=== PATIENT | female | born 1995 | race Hispanic/Latino ===

== ENCOUNTER 2017-02-08 21:28 | Emergency (ER) | payer OTHER ==
[~2017-02-08] VITALS: Ht 160 cm; Wt 56.8 kg
[2017-02-08 21:31] VITALS: BP 134/86; PULSE 102; RESP 20; O2SAT 100
[2017-02-08 23:37] LABS: APPEARANCE,URINE HAZY (CLEAR,HAZY); COLOR,URINE STRAW (YELLOW); OCCULT BLOOD,URINE NEGATIVE (NEGATIVE); PH,URINE 6.5 (5.0-8.0); UROBILINOGEN,URINE NORMAL (NORMAL)
--- NOTE | 2017-02-08 23:39 | ED.REPORT ---
HPI- Female Date of Service Feb 08, 2017 ED Provider: Dr. Bae A 22 year old female with a history of anemia presents to the ED complaining of vaginal discharge described as white and thick onset 1 month ago. Sometimes discharge is yellow. Associated symptoms include vaginal irritation ,itching, an unpleasant smell, and abdominal cramping. She was told by her doctor that it could be bacterial vaginosis. Nursing Notes Stated Complaint: VAGINAL DISCHARGE, ABDOMINAL CRAMPS Chief Complaint: Female Abdominal Pain Nursing Notes Reviewed: Yes Allergies: Coded Allergies: Sulfa (Sulfonamide Antibiotics) (Verified Allergy, Unknown, 11/06/14) General Time Seen by MD: 23:38 Chief Complaint Vaginal discharge... (White) Hx Obtained From: Patient Arrived By: Walk-in Sudden in Onset?: No Onset Occurred: More than a week ago... (1 month) Symptom Duration: Since onset Severity: Current: Moderate Severity: Maximum: Moderate Recent Healthcare: Recent doctor visit Similar Sx Previous: No Past Medical History Past Medical History On iron for anemia denies any other major medical problems Smoking History Never Smoker Social History Drug Use: THC Review of Systems Review of Systems Note: Vaginal irritation. Vaginal itching. Unpleasant smell. Constitutional: Denies: Chills, Fever GI: Reports: Abdominal pain (cramping) Female: Reports: Vaginal discharge Complete sys rev & neg: except as marked. Physical Exam Physical Exam Notes: Initial Vital Signs Vital Signs (First) Date Time Temp Pulse Resp B/P Pulse Ox O2 Delivery O2 Flow Rate FiO2 02/08/17 21:31 36.7 102 20 134/86 100 Room Air Initial VS: Reviewed Vaginal Bleeding / Discharge: Positive: Discharge white (Frothy with cervical tenderness) Pelvic Exam: Positive: Cervical motion tend... (pelvic exam performed with nurse chief [employer]. The nurse was present. There is cervical motion tenderness as well as thick white frothy discharge. Adnexa are within normal.) General/Constitutional: Awake, Alert Respiratory / Chest: Atraumatic, Breath sounds NL, Breath sounds = bilat, No respiratory distress, No rales, No rhonchi, No wheezing Cardiovascular: Heart rate NL, Regular rhythm, Heart sounds NL, No gallop, No murmurs, No rubs Abdomen: No guarding, No rebound Back: Atraumatic, Inspection NL Skin: Atraumatic, Color NL, Warm, Dry Head / Eyes: Atraumatic, Normocephalic, PERRL, EOMI Neck: Atraumatic, Supple, No swelling, Non-tender Upper Extremity / MS: No swelling, No edema Lower Extremity / Pelvis / MS: No swelling, No edema, Pelvis stable (Pelvis normal) Interpretation & Diagnostics Lab Results Interpretation Result Diagram: 02/08/17 2342 02/08/17 2342 Test 02/08/17 23:25 02/08/17 23:42 Urine Color Straw (YELLOW) Urine Appearance Hazy (CLEAR,HAZY) Urine pH 6.5 (5.0-8.0) Urine Specific [place] 1.013 (1.003-1.035) Urine Protein Negativemg/dL (NEG,TRACE) Urine Glucose (UA) Negativemg/dL (NEGATIVE) Urine Ketones Negativemg/dL (NEGATIVE) Urine Occult Blood Negative (NEGATIVE) Urine Nitrite Negative (NEGATIVE) Urine Bilirubin Negative (NEGATIVE) Urine Urobilinogen Normalmg/dL (NORMAL) Urine Leukocyte Esterase Moderate (NEGATIVE) Urine RBC 0-2/hpf (0-2) Urine WBC 6-10/hpf (0-5) Urine Epithelial Cells Moderate/hpf (NONE-MOD) Urine Crystals None seen (NONE SEEN) Urine Bacteria Few/hpf (NONE-FEW) Urine Hyaline Casts None/lpf (NONE) Urine Granular Casts None seen (NONE SEEN) Urine Waxy Casts None seen (NONE SEEN) Urine Red Blood Cell Casts None seen (NONE SEEN) Urine White Blood Cell Casts None seen (NONE SEEN) Urine Mucus None seen (None Seen) Urine Trichomonas None seen (NONE SEEN) Urine Yeast None (NONE SEEN) Urine Culture Reflexed Indicated White Blood Count 7.1th/mm3 (3.8-10.1) Red Blood Count 4.30mil/mm3 (3.90-5.20) Hemoglobin 6.5g/dL (12.0-15.6) Hematocrit 24.9% (35.0-46.0) Mean Corpuscular Volume 57.9fL (81-100) Mean Corpuscular Hemoglobin 15.1pg (27.0-35.0) Mean Corpuscular Hemoglobin Concent 26.1% (32.0-37.0) Red Cell Distribution Width 21.5% (12.3-15.4) Platelet Count 383bil/L (150-400) Neutrophils (%) (Auto) 57.9% (40-74) Lymphocytes (%) (Auto) 32.4% (14-46) Monocytes (%) (Auto) 6.7% (4-12) Eosinophils (%) (Auto) 1.4% (0-5) Basophils (%) (Auto) 1.3% (0-3) Band Neutrophils % 0% (1-5) Hematology Comments Sodium Level 140mEq/L (134-144) Potassium Level 4.4mEq/L (3.5-5.2) Chloride Level 105mEq/L (97-108) Carbon Dioxide Level 20mmol/L (18-29) Blood Urea Nitrogen 8mg/dL (6-20) Creatinine 0.41mg/dL (0.57-1.00) Estimat Glomerular Filtration Rate 283mL/min (>59) Glucose Level 140mg/dL (60-99) Calcium Level 8.8mg/dL (8.5-10.1) Magnesium Level 2.1mg/dL (1.6-2.6) Total Bilirubin 0.2mg/dL (0.0-1.2) Aspartate Amino Transf (AST/SGOT) 18U/L (0-50) Alanine Aminotransferase (ALT/SGPT) 10U/L (0-32) Alkaline Phosphatase 82U/L (25-150) Total Protein 7.5g/dL (6.4-8.4) Albumin 4.3g/dL (3.4-5.0) Lipase 19U/L (13-60) Hold Caraballo Top Tube Received (Received) Re-Eval/Medical Decision Med Decision/Clinical Course Signs and symptoms are consistent with bacterial vaginosis. The clue cells make this almost definitive. She does have cervical motion tenderness and she has had unprotected intercourse so cervicitis from gonorrhea and chlamydia are always a possibility. As such she was treated Rocephin and Zithromax. She will be placed on doxycycline twice daily for 7 days. She will be placed on Flagyl twice daily for 7 days. She will follow up for definitive care based on the cultures. She is moderate to severely anemic. This is a well-known well- documented problem that she suffers with. She supposed be taking iron and she has been poorly compliant. She is currently not having any chest pain or shortness of breath. She is not menstruating. She is going to start taking her iron and have repeat blood counts in about 4 weeks. She has been given local referral to follow up with. Source of Hx: Old records Re-Evaluation/Progress #1: Time of Eval: 23:53 Re-Evaluation/Progress Note: Patient did not want her mom to find out about chief complaint, so I agreed to talk with patient in a separate room. Re-Evaluation/Progress #2: Time of Eval: 00:29 Re-Evaluation/Progress Note: Rechecked patient and finished physical exam. Re-Evaluation/Progress #3: Time of Eval: 01:26 Re-Evaluation/Progress Note: Rechecked patient, explained test results, diagnosis, and plan for discharge. Patient understands and agrees with the plan. All questions addressed. Re-Evaluation/Progress #4: Time of Eval: 01:40 Re-Evaluation/Progress Note: Rechecked patient on her way up and emphasized the need for her to continue with the treatments for her anemia. Counseled Regarding: Diagnosis, Lab results, Need for follow-up, When/why to return to ED Discharge & Departure Shift Change Sign-Out Response to Therapy: Improved Impression: Primary Impression: Cervicitis Additional Impressions: Bacterial vaginosis Iron deficiency anemia Iron deficiency anemia type: inadequate dietary iron intake Qualified Code: D50.8 - Other iron deficiency anemias Disposition: Home Discharge Condition All VS Reviewed: Yes Condition: Stable Patient Instructions: Bacterial Vaginosis (ED), Cervicitis (ED) Additional Instructions: Take Flagyl twice daily for 7 days. No alcohol while taking the Flagyl. Take doxycycline twice daily for 7 days. Avoid direct sunlight will taking the doxycycline. We have sent off cultures for infection and they will be available in a few days. Set up a follow-up with your primary care physician for the next 5-7 days. Return if any problems or any worsening symptoms. Read the after care instructions given. It is essential that she take her iron supplementation. You are moderate to severely anemic and this needs to be followed up with repeat labs. Discuss this with the follow-up clinician that you see. Referrals: [facility] (PCP) Scribe Attestation Portions of this note were transcribed by Zenon Barlow. I, Dr. Bae personally performed the history, physical exam and medical decision-making; I reviewed and confirmed the accuracy of the information in the transcribed note. Signed by: Courtney Pacheco, 02/09/2017, 0143. copies to: [facility] Issac Bae DO Feb 08, 2017 23:39 Zenon Barlow Feb 09, 2017 00:01
[2017-02-08 23:58] LABS: Mean Corpuscular Hemoglobin 15.1 pg (27.0-35.0); Mean Corpuscular Volume 57.9 fL (81-100); NEUTROPHILS % (AUTO) 57.9 % (40-74); Platelet Count 383 bil/L (150-400)
[2017-02-08 23:59] LABS: BASOPHILS % (AUTO) 1.3 % (0-3); EOSINOPHILS % (AUTO) 1.4 % (0-5); MONOCYTES % (AUTO) 6.7 % (4-12)
[2017-02-09 00:22] LABS: Magnesium 2.1 mg/dL (1.6-2.6)
[2017-02-09] MEDS ORDERED: cefTRIAXone Inj 250 MG, Lidocaine PF 1% Inj 0.9 ML in Syringe 1 EACH IM ONE (00:40)
[2017-02-09 01:35] VITALS: BP 127/76; PULSE 85; RESP 18; O2SAT 100
== END 2017-02-09 01:31 | disposition home or self-care (01) ==
LOC: SED 21:28
DX: N72 Inflammatory disease of cervix uteri (principal); N76.0 Acute vaginitis; D50.8 Other iron deficiency anemias; Z88.2 Allergy status to sulfonamides
CPT/HCPCS: 80053; 81000; 81025; 83690; 83735; 85025; 87086; 87088; 87210; 87491; 87591; 96372; 99284; J0696

== ENCOUNTER 2017-04-04 18:24 | Emergency (ER) | payer OTHER ==
[~2017-04-04] VITALS: Ht 160 cm; Wt 56.8 kg
[2017-04-04 18:26] VITALS: BP 131/80; PULSE 64; RESP 16; O2SAT 100
--- NOTE | 2017-04-04 18:39 | ED.REPORT ---
HPI-Abd Pain F Under 42 Date of Service Apr 04, 2017 ED Provider: Luis MENDEZ A 22 year old female presents to the ED complaining of abdominal pain that began shortly before presentation. Patient states her began at work, when she felt hot, felt lightheaded and had pain in her lower abdomen. She complains of nausea/vomiting, diarrhea, low back pain, lower abdominal pain, feeling hot/ chills. Patient reports her menstrual period began 2 days ago. Denies vaginal discharge, urinary symptoms history of abdominal surgeries, ectopic pregnancies , PID. Patient reports recent history of chlamydia which was proven to be eradicated, as well as bacterial vaginosis, yeast infection. 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 Nursing Notes Stated Complaint: ABDOMINAL PAIN Chief Complaint: Female Abdominal Pain Nursing Notes Reviewed: Yes Allergies: Coded Allergies: Sulfa (Sulfonamide Antibiotics) (Verified Allergy, Unknown, 04/04/17) Scheduled Ondansetron ODT (Ondansetron ODT) 4 Mg Tab.rapdis 4 MG PO TID General Time Seen by MD: 18:38 Chief Complaint Abdominal pain Hx Obtained From: Patient Arrived By: Walk-in Sudden in Onset?: No Symptom Duration: Since onset Progression since Onset: Unchanged Location: : Abdomen lower Quality: Painful Radiation: : Does not radiate Severity: Current: Mild Severity: Maximum: Mild Pertinent Negative: Pt denies other symptoms Status: test pending Recent Healthcare: No recent doctor visit, No recent hospitalization Past Medical History Past Medical History On iron for anemia denies any other major medical problems Smoking History Never Smoker Social History Drug Use: THC Review of Systems General: Admits chills, denies fever, malaise HEENT: Denies congestion, headache, sore throat. Respiratory: Denies dyspnea, cough, shortness of breath, wheezing. Cardiovascular: Denies chest pain, palpitations. Gastrointestinal: Admits vomiting, diarrhea, abdominal pain. Genitourinary: Denies frequency, urgency, dysuria, hematuria. Admits vaginal bleeding, denies discharge. Otherwise as noted in HPI. Physical Exam General: Ill appearing, well developed, well nourished, moderate distress. Head: Atraumatic, normocephalic. Eyes: No scleral icterus or injection. No discharge. Vision grossly intact. ENT: Voice clear, hearing grossly intact. Respiratory: Regular rate and rhythm. Breath sounds present, clear to auscultation and equal bilaterally. No respiratory distress. No increased work of breathing, speaks in complete sentences. Cardiovascular: Regular rate and rhythm, without murmur, gallop or rub. No pedal edema. Gastrointestinal: Abdomen flat and diffusely tender across lower abdomen with intermittent guarding, negative rebound. No masses felt. Bowel sounds normoactive. Back: Normal to inspection, negative CVA tenderness, mild diffuse lumbar tenderness. Genitourinary: Normal external genitalia without lesions or discharge. Cervix is poorly visualized, no lesions noted, expected menstrual blood, no discharge. Bimanual exam reveals negative EMT or adnexal tenderness. Adnexa not appreciated. Skin: Warm and dry. Neurological: Grossly nonfocal. Psychological: Alert and oriented. Speech appropriate, linear and logical. Behavior appropriate. Initial Vital Signs Vital Signs (First) Date Time Temp Pulse Resp B/P Pulse Ox O2 Delivery O2 Flow Rate FiO2 04/04/17 18:26 36.2 64 16 131/80 100 Room Air Interpretation & Diagnostics Lab Results Interpretation Result Diagram: 04/04/17 1845 04/04/17 1845 Test 04/04/17 18:45 04/04/17 19:33 04/04/17 19:38 04/04/17 21:31 White Blood Count 12.7th/mm3 (3.8-10.1) Red Blood Count 4.88mil/mm3 (3.90-5.20) Hemoglobin 8.4g/dL (12.0-15.6) Hematocrit 30.6% (35.0-46.0) Mean Corpuscular Volume 62.7fL (81-100) Mean Corpuscular Hemoglobin 17.2pg (27.0-35.0) Mean Corpuscular Hemoglobin Concent 27.5% (32.0-37.0) Red Cell Distribution Width 23.6% (12.3-15.4) Platelet Count 439bil/L (150-400) Neutrophils (%) (Auto) 84.5% (40-74) Lymphocytes (%) (Auto) 9.8% (14-46) Monocytes (%) (Auto) 4.7% (4-12) Eosinophils (%) (Auto) 0.2% (0-5) Basophils (%) (Auto) 0.6% (0-3) Sodium Level 136mEq/L (134-144) Potassium Level 3.8mEq/L (3.5-5.2) Chloride Level 101mEq/L (97-108) Carbon Dioxide Level 20mmol/L (18-29) Blood Urea Nitrogen 14mg/dL (6-20) Creatinine 0.54mg/dL (0.57-1.00) Estimat Glomerular Filtration Rate 206mL/min (>59) Glucose Level 140mg/dL (60-99) Calcium Level 9.2mg/dL (8.5-10.1) Magnesium Level 1.7mg/dL (1.6-2.6) Total Bilirubin 0.2mg/dL (0.0-1.2) Aspartate Amino Transf (AST/SGOT) 21U/L (0-50) Alanine Aminotransferase (ALT/SGPT) 12U/L (0-32) Alkaline Phosphatase 70U/L (25-150) Total Protein 7.5g/dL (6.4-8.4) Albumin 4.3g/dL (3.4-5.0) Lipase 13U/L (13-60) Human Chorionic Gonadotropin, Qual <0.500 (Negative) Hold Caraballo Top Tube Received (Received) Hold Urine Received (Received) Urine Color Yellow (YELLOW) Urine Appearance Hazy (CLEAR,HAZY) Urine pH 7.0 (5.0-8.0) Urine Specific [place] 1.020 (1.003-1.035) Urine Protein Tracemg/dL (NEG,TRACE) Urine Glucose (UA) Negativemg/dL (NEGATIVE) Urine Ketones Negativemg/dL (NEGATIVE) Urine Occult Blood Large (NEGATIVE) Urine Nitrite Negative (NEGATIVE) Urine Bilirubin Negative (NEGATIVE) Urine Urobilinogen Normalmg/dL (NORMAL) Urine Leukocyte Esterase Negative (NEGATIVE) Urine RBC >50/hpf (0-2) Urine WBC 0-5/hpf (0-5) Urine Epithelial Cells Few/hpf (NONE-MOD) Urine Crystals None seen (NONE SEEN) Urine Bacteria Few/hpf (NONE-FEW) Urine Hyaline Casts None/lpf (NONE) Urine Granular Casts None seen (NONE SEEN) Urine Waxy Casts None seen (NONE SEEN) Urine Red Blood Cell Casts None seen (NONE SEEN) Urine White Blood Cell Casts None seen (NONE SEEN) Urine Mucus Present (None Seen) Urine Trichomonas None seen (NONE SEEN) Urine Yeast None (NONE SEEN) Urinalysis Comment None Urine Culture Reflexed Not indicated Re-Eval/Medical Decision Med Decision/Clinical Course Otherwise healthy 22-year-old female presents with lower abdominal and lower back pain began relatively suddenly this afternoon while at work. Patient reports cramping pain, vomiting, diarrhea, feeling hot, chills. Reports recent history of bacterial vaginosis, chlamydia. His examination reveals diffuse lower abdominal tenderness, mild lower back tenderness, negative vaginal discharge, negative CMT or adnexal tenderness. CBC reveals mild leukocytosis at 12.1 with a left shift, mild anemia which is roughly at baseline. CMP is normal, urinalysis normal. At this point I am reassured against PID, appendicitis, diverticulitis, ovarian torsion, ovarian cyst, ectopic , nephrolithiasis, pyelonephritis. Patient responds well to IV hydration, ondansetron, Dilaudid. Patient states she feels better and wishes to be discharged. I discussed the case with Dr. Soliz, we feel she is stable and safe to be discharged to home. Advise over-the -counter analgesia, provided a work note. Advised regarding primary care follow- up, provided emergency return precautions. Patient verbalized understanding of , and consent to, the plan. Re-Evaluation/Progress : Time of Eval: 20:57 Re-Evaluation/Progress Note: Abdominal tenderness is significantly improved. Patient states her pain is reduced from 10/10 to 3/10. Discharge & Departure Primary Impression: Abdominal pain Abdominal location: lower abdomen, unspecified Qualified Code: R10.30 - Lower abdominal pain, unspecified Disposition: Home Discharge Condition All VS Reviewed: Yes Condition: Stable Patient Instructions: Acute Abdominal Pain (ED) Additional Instructions: Evaluation for lower abdominal pain in the emergency department consists of history, physical examination and lab tests, all of which are reassuring that this is unlikely to be caused by an immediately dangerous condition. I believe your safe to be discharged home. The pain is best treated with 400 mg of ibuprofen (Advil, Motrin) every 6 hours , or 1000 mg of acetaminophen (Tylenol) every 6 hours. These drugs can be taken at the same time for more severe pain. I will write a prescription for antinausea medication. Rest and stay hydrated by drinking small amounts of fluid throughout the day. Follow-up with your primary care provider in a day or 2 to be sure this is progressing as expected. Emergency department for any new or worsening symptoms getting increasing pain, fever, vomiting that does not respond to medication. Referrals: MAGALY [facility] (PCP) EDSupervising Provider for APC: Marco Antonio Soliz MD Attending Statment Case was discussed with JENAE Roland and I agree with above plan. copies to: MAGALY [facility]IR[facility] Donald L MD Apr 04, 2017 18:38 TOBIN LIPSCOMB Apr 04, 2017 19:12 Luis Roland PA-C Apr 04, 2017 21:09
[2017-04-04 19:00] LABS: BASOPHILS % (AUTO) 0.6 % (0-3); EOSINOPHILS % (AUTO) 0.2 % (0-5); MONOCYTES % (AUTO) 4.7 % (4-12)
[2017-04-04 19:07] LABS: Mean Corpuscular Hemoglobin 17.2 pg (27.0-35.0); Mean Corpuscular Volume 62.7 fL (81-100); NEUTROPHILS % (AUTO) 84.5 % (40-74); Platelet Count 439 bil/L (150-400)
[2017-04-04] MEDS ORDERED: Ondansetron 2 mg/mL 2 mL Inj IVPUSH ONE (19:20)
[2017-04-04 19:38] LABS: Lipase 13 U/L (13-60); Magnesium 1.7 mg/dL (1.6-2.6)
[2017-04-04] MEDS ORDERED: HYDROmorphone 0.5 mg/0.5 mL iSecure Syringe IVPUSH PRN (19:40)
[2017-04-04] MEDS ORDERED: 0.9% Sodium Chloride 1,000 ML IV ONE (19:45)
[2017-04-04 19:53] LABS: APPEARANCE,URINE HAZY (CLEAR,HAZY); COLOR,URINE YELLOW (YELLOW)
[2017-04-04 19:54] LABS: OCCULT BLOOD,URINE LARGE (NEGATIVE); UROBILINOGEN,URINE NORMAL (NORMAL)
[2017-04-04] MEDS ORDERED: ONDA4TAB12 PO (21:13)
[2017-04-04 21:28] VITALS: BP 103/54; PULSE 81; RESP 18; O2SAT 100
== END 2017-04-04 21:29 | disposition home or self-care (01) ==
LOC: SED 18:24
DX: R10.30 Lower abdominal pain, unspecified (principal); R11.2 Nausea with vomiting, unspecified; R19.7 Diarrhea, unspecified; M54.5 Low back pain; A74.9 Chlamydial infection, unspecified; F12.10 Cannabis abuse, uncomplicated; D64.9 Anemia, unspecified; Z88.2 Allergy status to sulfonamides
CPT/HCPCS: 36415; 80053; 81000; 81025; 83690; 83735; 84703; 85025; 87210; 87491; 87591; 96361; 96374; 96375; 99284; J1170; J2405; J7030

== ENCOUNTER 2017-04-30 20:44 | Emergency (ER) | payer OTHER ==
[~2017-04-30] VITALS: Ht 160 cm; Wt 56.8 kg
[~2017-04-30 20:44] MED LIST: ONDA4TAB12 PO
[2017-04-30 21:18] VITALS: BP 119/73; PULSE 89; RESP 16; O2SAT 100
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
[2017-04-30] MEDS ORDERED: cefTRIAXone Inj 250 MG, Lidocaine PF 1% Inj 0.9 ML in Syringe 1 EACH IM ONE (23:45)
[2017-04-30 23:46] LABS: APPEARANCE,URINE SLIGHTLY CLOUDY (CLEAR,HAZY); COLOR,URINE YELLOW (YELLOW); OCCULT BLOOD,URINE NEGATIVE (NEGATIVE); PH,URINE 6.5 (5.0-8.0); UROBILINOGEN,URINE NORMAL (NORMAL)
[2017-05-01 00:36] VITALS: BP 115/80; PULSE 80; RESP 20; O2SAT 98
== END 2017-05-01 00:50 | disposition home or self-care (01) ==
LOC: SED 20:44
DX: N72 Inflammatory disease of cervix uteri (principal); Z88.2 Allergy status to sulfonamides
CPT/HCPCS: 36415; 81000; 81025; 87086; 87088; 87491; 87591; 96372; 99284; J0696

== ENCOUNTER 2017-07-20 20:44 | Emergency (ER) | payer OTHER ==
[~2017-07-20] VITALS: Ht 160 cm; Wt 59.1 kg
[2017-07-20 21:16] VITALS: BP 108/71; PULSE 88; RESP 18; O2SAT 100
--- NOTE | 2017-07-20 22:17 | ED.REPORT ---
HPI-Extremity Problem Upper Date of Service Jul 20, 2017 ED Provider: Issac Bae DO Pt is 22 year old female with a history of anemia who presents to the ED complaining of throbbing upper right arm pain onset today. She c/o right upper arm swelling and epigastric pain. The pt reports that [place] in [place] when she felt a "big pinch" on her upper right arm. She is unsure if she was bit by something, stating that she was wearing her sweater. Pt also reports SOB, but states that it was onset yesterday night. Nursing Notes Stated Complaint: BIT RIGHT ARM- SOB Chief Complaint: Extremity Trauma Nursing Notes Reviewed: Yes Allergies: Coded Allergies: Sulfa (Sulfonamide Antibiotics) (Verified Allergy, Unknown, 07/20/17) Scheduled Ondansetron ODT (Ondansetron ODT) 4 Mg Tab.rapdis 4 MG PO TID General Time Seen by MD: 22:17 Chief Complaint Forearm injury right Hx Obtained From: Patient Arrived By: Walk-in Onset Occurred: Just prior to arrival Symptom Duration: Since onset Location: : Forearm right Quality: Painful Severity: Current: Moderate Severity: Maximum: Moderate Recent Healthcare: No recent doctor visit, No recent hospitalization Similar Sx Previous: No Past Medical History Past Medical History On iron for anemia; otherwise healthy Past Surgical History None reported. Smoking History Never Smoker Social History Alcohol Use: "Social" Drug Use: THC Other Social History: Good social support, Local resident Ambulatory Status Independent Review of Systems Constitutional: Denies: Fever Musculoskeletal: Reports: Extremity pain, Extremity swelling Complete sys rev & neg: except as marked. Respiratory: Reports: Shortness of breath GI: Reports: Abdominal pain Physical Exam Initial Vital Signs Vital Signs (First) Date Time Temp Pulse Resp B/P Pulse Ox O2 Delivery O2 Flow Rate FiO2 07/20/17 21:16 36.5 88 18 108/71 100 Room Air Initial VS: Reviewed Head / Eyes: Atraumatic, Normocephalic Neck: Supple, Full range of motion Cardiovascular: Regular rate & rhythm, Heart sounds normal, Intact distal pulses Lower Extremities: Vascular intact, Neuro intact Skin: Warm, Dry, No cyanosis Neurologic: Alert, Oriented, Nonfocal Psychiatric: Mood/affect normal, Behavior normal General/Constitutional: Awake, Alert Respiratory / Chest: Atraumatic Faint expiratory wheezes Upper Extremity / MS: Neurologic intact, Vascular intact Erythema and induration to the medial aspect of her right bicep. Strong pulses and no signs of a DVT. Re-Eval/Medical Decision Source of Hx: Old records Re-Evaluation/Progress #1: Time of Eval: 22:48 Re-Evaluation/Progress Note: Informed pt of plan for treatment with albuterol, dethamexazone, and Benadryl. All questions addressed. Re-Evaluation/Progress #2: Time of Eval: 00:08 Re-Evaluation/Progress Note: Pt rechecked. Pt is feeling better and would like to go home. Informed pt of plan for discharge. Pt understands and agrees with plan for discharge. F/U instructions and RTER warnings given. All questions addressed. Counseled Regarding: Diagnosis, Need for follow-up, When/why to return to ED Discharge & Departure Impression: Primary Impression: Insect bite Encounter type: initial encounter Qualified Code: W57.XXXA - Bitten or stung by nonvenomous insect and other nonvenomous arthropods, initial encounter Additional Impression: Reactive airway disease Asthma severity: unspecified severity Asthma complication type: uncomplicated Qualified Code: J45.909 - Unspecified asthma, uncomplicated Disposition: Home Discharge Condition All VS Reviewed: Yes Condition: Stable Patient Instructions: Insect Bite or Sting (ED), Reactive Airways Disease (ED) Additional Instructions: Albuterol 2 puffs every 4 hours for the wheezing. Take gify-uso-ywzueiu Benadryl for the bite. Call your primary care provider on Sunday for a follow up appointment next week. Return to the Emergency Department for any new or concerning symptoms. Referrals: Mitch Hein DO (PCP) Triciaibisa Attestation Portions of this note were transcribed by Ana Sanders. I, Dr. Bae personally performed the history, physical exam and medical decision-making; I reviewed and confirmed the accuracy of the information in the transcribed note. Signed by : Courtney Mason, 07/20/17. copies to: Mitch Hein Todd P DO Jul 20, 2017 22:17 Ana Jarrell Jul 20, 2017 22:52
[2017-07-20] MEDS ORDERED: Dexamethasone 20 mg/2 mL Oral Solution PO ONE (22:55)
[2017-07-20] MEDS ORDERED: _Proair 200 Puff/8.5 GM Inhaler INHALATION PRN (22:55)
== END 2017-07-21 00:31 | disposition home or self-care (01) ==
LOC: SED 20:44
DX: S40.871A Other superficial bite of right upper arm, initial encounter (principal); J45.909 Unspecified asthma, uncomplicated; W57.XXXA Bitten or stung by nonvenomous insect and other nonvenomous arthropods, initial encounter; Y93.01 Activity, walking, marching and hiking; Y99.8 Other external cause status; Y92.828 Other wilderness area as the place of occurrence of the external cause; D64.9 Anemia, unspecified; F12.10 Cannabis abuse, uncomplicated; Z88.2 Allergy status to sulfonamides